=== PATIENT | female | born 1955 | race Caucasian/White ===

== ENCOUNTER 2016-07-21 07:44 | Day surgery (SDC) | payer OTHER ==
[2016-07-21 09:21] VITALS: BMI 31.4
[2016-07-21] MEDS ORDERED: Propofol 10 mg/ml Inj (20 ML) ONE ×2 (09:58→10:22)
[2016-07-21 12:44] VITALS: O2SAT 100
[2016-07-21 12:47] VITALS: BP 135/79; PULSE 68; RESP 17; TEMP 96.9
== END 2016-07-21 12:40 | disposition home or self-care (01) ==
LOC: C.ENDO 07:44
PROVIDERS: ATTEND Internal Medicine Gastroenterology
DX: K29.50 Unspecified chronic gastritis without bleeding (principal); K57.90 Diverticulosis of intestine, part unspecified, without perforation or abscess without bleeding; D12.5 Benign neoplasm of sigmoid colon
CPT/HCPCS: 43239; 45388; 88305; 88342; J2704; J3010